=== PATIENT | male | born 1950 | race Caucasian/White ===

== ENCOUNTER → 2024-05-25 13:59 | Outpatient (REF) | payer OTHER, SELFPAY | LOC: PAVMRI 13:59 | PROVIDERS: ATTENDING PHYSICIAN Physician Assistant; FAMILY PHYSICIAN Family Medicine | DX: H90.42 Sensorineural hearing loss, unilateral, left ear, with unrestricted hearing on the contralateral side (principal) | CPT/HCPCS: 70553; A9575 ==

== ENCOUNTER → 2024-08-03 08:15 | Outpatient (REF) | payer OTHER, SELFPAY | LOC: HWRCS 08:15 | PROVIDERS: ATTENDING PHYSICIAN Internal Medicine Cardiovascular Disease; FAMILY PHYSICIAN Family Medicine | DX: I35.0 Nonrheumatic aortic (valve) stenosis (principal) | CPT/HCPCS: 93306 ==

== ENCOUNTER 2024-12-09 10:24 | Emergency (ER) | payer OTHER, SELFPAY ==
[2024-12-09 10:25] VITALS: BP 152/72
--- NOTE | 2024-12-09 12:09 | ED.GENMED ---
History of Present Illness
General
Chief Complaint: Skin Surface Trauma
Source: patient
Exam Limitations: none
Time Seen by Provider: 12/09/24 11:36
Nursing documentation reviewed up to this point in time: agreed with
History of Present Illness
History of Present Illness:
Patient is a 74-year-old male who presents to the emergency department for evaluation of laceration to his left fourth finger. Patient was using a hedgetrimmer when he accidentally cut his finger just prior to evaluation. He denies any other
injuries. No numbness/tingling in affected finger.
He is unsure when he received his last tetanus booster shot. No blood thinners.
Review of Systems
Review of Systems
Allergies reviewed?: Yes
All Other Systems: ROS reviewed and negative except as documented in HPI and ROS
Phy Exam
Physical Exam
Physical Exam:
Vitals: Hypertensive, otherwise vitals stable. Afebrile
General: Patient is well appearing, no acute distress
Skin: Approximately 2 cm vertical/curved laceration of palmar aspect of distal left fourth finger extending from tuft to medial aspect of nail. No involvement of nailbed
Head: Normocephalic, atraumatic
Throat: Protecting airway
Neck: Normal ROM, no cervical spine tenderness
Cardiac: Regular rate
Pulm: No apparent respiratory distress
Abdomen: Nondistended
Extremities: Laceration to left 4th finger as described above. Full ability to flex/extend at DIP, PIP, and MCP joints against resistance. Sensation intact. Capillary refill wnl.
Neuro: Grossly intact
Psychiatric: Normal affect.
Course
Orders/Labs/Results
Orders:
Orders
12/09/24 12:06
Tetanus/Diphth/Acelpertussis [Adacel] 0.5 ml IM .ONCE ONE
Vital Signs
Initial and Last Documented VS:
Initial Vital Signs
Temp Pulse Resp BP Pulse Ox
98 F 80 16 152/72 95
12/09/24 10:25 12/09/24 10:25 12/09/24 10:25 12/09/24 10:25 12/09/24 10:25
Last Documented Vital Signs
Temp Pulse Resp BP Pulse Ox
98 F 80 16 152/72 95
12/09/24 10:25 12/09/24 10:25 12/09/24 10:25 12/09/24 10:25 12/09/24 10:25
Procedures
Laceration Closure
Left Fourth Finger:
Status of Wound: clean
Size of Wound in cm: 2.0
Description of Wound Edges: sharp
Preparation: cleaned with saline and cleaned with Betadine
Anesthesia: 1% Lidocaine and Digital-Regional
Revision/Debridement: routine- no revision
Wound exploration: explored to base- no FB
Type of Closure: single layer closure
Skin Closure Material: 5-0 nylon (6)
Number of sutures: 6
MDM/Problems Addressed
Differential Diagnosis Includes:
Not limited to: finger laceration, tendon injury, etc
MDM/Problems Addressed:
The patient presented to the Emergency Department with a laceration to the left fourth finger sustained while using a golf ball trimmer this morning at home. On physical examination, there was a clean laceration approximately 2.0cm on the palmar aspect
of the left distal fourth finger extending to the medial aspect of nail, however no involvement of nailbed. No tendon, nerve, or vascular injury was identified. Capillary refill was intact, and the patient retained full range of motion and normal
sensation distal to the injury. Verbal consent obtained by patient for primary closure of wound in ED.
The wound was irrigated thoroughly with normal saline, and a digital block was performed using 1% lidocaine without epinephrine. The laceration was repaired with 6 simple interrupted sutures using 5-0 nylon. Hemostasis was achieved, and a sterile
dressing was applied. Patient tolerated procedure well. Patient received a tetanus booster in the ED. Stable for d/c home with wound care instructions, PCP f/u for suture removal in 10-14 days. He will monitor closely for signs of infection.
Chronic conditions affecting care:
N/A
Acute Exacerbation and/or Progression of Chronic Illness:
N/A
*Pulse Oximetry
Patient hypoxic: no (95% on RA)
*EKG
Interpreted by ED Provider?: NA
*Metaphysics Teacher Interpretation
Rate: Metaphysics Teacher- N/A
*Critical Care Note
Total Time (30-74mins, 75-104mins- exclusive of procedures): Not Applicable
ED Attending Note
-
Portions of this chart may have been created with voice recognition software.� Occasional wrong word or��sound alike� substitutions may have occurred due to the inherent limitations of voice recognition software.
Discharge Plan
Departure
Patient Disposition: Home (Routine Discharge)
Date of Disposition: 12/09/24
Time of Disposition: 13:12
Patient with high blood pressure during this ER visit?: Yes
Condition: Good
Covid-19: Not Applicable
Discharge Problem:
Laceration of finger
Instructions: Wound Care (DC), Laceration Repair With Stitches (DC), BLOOD PRESSURE
Prescriptions:
No Action
atorvastatin 10 MG tablet
10 mg PO .@1000
tamsulosin 0.4 MG capsule
0.4 mg PO .@1800
hydrochlorothiazide 25 MG tablet
25 mg PO .@1000
finasteride 5 MG tablet
5 mg PO .@1800
fenofibrate nanocrystallized 145 MG tablet
145 mg PO .@1000
Saw [place]
1 tab PO .@1000
sennosides [senna] 1 TABLET tablet
2 tab PO BID 0RF
acetaminophen 325 MG tablet
650 mg PO QID 0RF
magnesium hydroxide 30 ML suspension
30 ml PO DAILYPRN PRN (Reason: constipation) 0RF
aspirin 325 MG tablet,delayed release (DR/EC)
325 mg PO DAILY 0RF
docusate sodium 100 MG capsule
100 mg PO BID 0RF
mupirocin 1 APPLIC ointment
1 applic intranasal BID 0RF
famotidine 20 MG tablet
20 mg PO HS Qty: 1 0RF
meloxicam 15 MG tablet
15 mg PO .@1000 Qty: 1 0RF
Rx Instructions:
take with food
do not take within 2h of ASA
amlodipine 5 MG tablet
5 mg PO .@1000 Qty: 0 0RF
Rx Instructions:
hold sbp <135
lisinopril 40 MG tablet
40 mg PO DAILY Qty: 1 0RF
Rx Instructions:
hold systolic blood pressure <135
hydromorphone 2 MG tablet
2 mg PO Q4HPRN PRN (Reason: MODERATE-SEVERE PAIN) Qty: 60 0RF
Rx Instructions:
1 TAB MODERATE PAIN OR 2 IF PAIN SEVERE
DX TKA
ONGOING
prednisone 10 MG tablet
40 mg PO DAILY Qty: 16 0RF
Rx Instructions:
4 TABS 07/05
3 TABS 07/06 AND 07/07
2 TABS 07/08 AND 07/09
1 TAB 07/10 AND 07/11
Referrals:
Henok Magaña MD [Family Provider, Family Practice] - Follow up in 10 days
Activity Restrictions/Additional Instructions:
RETURN TO THE EMERGENCY DEPARTMENT WITH ANY BLEEDING FROM THE LACERATION THAT WILL NOT STOP AT HOME, NUMBNESS/TINGLING OF AFFECTED FINGER OR ANY SIGNS OF INFECTION INCLUDING FEVER, SIGNIFICANT REDNESS/SWELLING OF AFFECTED FINGER, PURULENT DRAINAGE
FROM WOUND, OR ANY OTHER CONCERNS
- As discussed�your laceration was closed with 6 stitches in the emergency department. These will need to be removed in 10 to 14 days. This can be done at primary care, urgent care, or emergency department.
- Keep wound clean and dry. Wash gently with soap and water daily. Keep wound covered with bandage until sutures are removed.
- Follow-up with primary care for further evaluation/management for suture removal
Monitor your symptoms closely and return to the emergency department with any acute worsening/new symptoms or any other concerns
Interventions
Interventions:
*Risk Screen - Suicide Last Done: 12/09/24 10:26
*Neglect/Abuse Screening Last Done: 12/09/24 10:26
*Nursing Disposition Last Done: 12/09/24 13:45
ED-Skin Assessment Last Done: 12/09/24 11:15
Discharge Date and Time
Discharge Date/Time: 12/09/24 13:47
Print Language: FAROESE
[2024-12-09] MEDS: ADACEL 0.5 ML IM (12:18)
== END 2024-12-09 13:47 | disposition home or self-care (01) ==
LOC: EMR 10:24
PROVIDERS: EMERGENCY PHYSICIAN Emergency Medicine; FAMILY PHYSICIAN Family Medicine
DX: S61.215A Laceration without foreign body of left ring finger without damage to nail, initial encounter (principal); W27.1XXA Contact with garden tool, initial encounter; Z23 Encounter for immunization
CPT/HCPCS: 99282; 12001; 90471; 90715

== ENCOUNTER 2025-03-17 06:03 | Day surgery (SDC) | payer OTHER, SELFPAY ==
--- NOTE | 2025-03-14 11:05 | VNURNOTE ---
Patient is scheduled for an elective L TKA on 03/17 - he is a same day patient with Dr Ross. Spoke with patient prior to surgery. Introduced role of [facility] Liaison. Patient reports that he lives with his .
He has a cane and rolling walker.
He had VN services after his prior THR but was not same day surgery.
Discussed [facility] joint protocol and post surgical plans.
Reviewed that he will have VN services initially and will then start outpatient PT.
Patient selects [facility] for his home care needs and [facility]. Scheduled for 03/21 .
Patient is in agreement with plan and states that his will be home with him. Advised to bring RW with him day of surgery. Referral placed in [facility]. [facility] contact number provided.
Plan: [facility] per [facility] joint protocol 03/17 then outpt PT on 03/21
--- NOTE | 2025-03-14 11:11 | CM ---
CM reviewed medical records. Plan for [facility] with same day VN.
[2025-03-17] VITALS (15 sets, daily range): BP systolic 117–161; BP diastolic 59–81; PULSE 96; O2SAT 98; BMI 31.2
[2025-03-17] MEDS: TYLENOL 650 MG PO (07:16)
[2025-03-17] MEDS: CELEBREX 200 MG PO (07:16)
[2025-03-17] MEDS: DILAUDID 0.25 MG IV ×3 (09:25→09:55)
[2025-03-17] MEDS: ROXICODONE 5 MG PO (11:09)
[2025-03-17] MEDS: FLOMAX 0.4 MG PO (12:51)
[2025-03-17 13:29] LABS: Glycohemoglobin (HgbA1c) 5.6 % (4.0-5.6)
--- NOTE | 2025-03-17 15:39 | W.PN.UPDATE ---
Update Note
Progress Note Update
L knee OA s/p L TKA w/ Dr Ross 03/17/25
DVT prophylaxis - ASA, bl venous foot pumps
Post-surgical urinary retention 2* underlying BPH - monitor voiding
- Bladder scan/straight cath prn
- Add daily Flomax
- Continue Finasteride
- Consider Bowen should retention continue
HTN - + parameters - monitor BP
Moderate , asymptomatic - decrease hourly IVF rate to prevent fluid overload
HLD
RBBB
Sinus bradycardia, asymptomatic
Colon polyps
Diverticulosis
--- NOTE | 2025-03-17 15:54 | W.PN.UPDATE ---
Update Note
Progress Note Update
Pt unfortunately not voiding post-procedure.
Voiding difficulties secondary to BPH for which he takes Finasteride. Has been compliant w/ med.
He was given a dose of Flomax this morning.
Otherwise is doing well. Passed w/ PT.
Talked w/ Dr Ross. Will give a dose of Lasix now and give the patient further time to urinate.
Should he still not be able to urinate, will d/c w/ Logan. Voiding trial can be done outpatient.
He will be d/c initially w/ VN services for further logan care if needed.
--- NOTE | 2025-03-17 16:02 | PTCARENOTE ---
Dr. Ross at [facility]. Plan is for patient to receive a dose of lasix. If in 30 minutes still no void, another dose of lasix. If no void after second dose of lasix a logan will be placed and patient will be discharged home.
[2025-03-17] MEDS: LASIX 10 MG IV (16:13)
== END 2025-03-17 17:07 | disposition home health service (06) ==
LOC: SDS 06:03
PROVIDERS: ATTENDING PHYSICIAN Orthopaedic Surgery
DX: M17.12 Unilateral primary osteoarthritis, left knee (principal)
CPT/HCPCS: 27447; 73560; 83036; 87070; 97162; C1713; C1776

== ENCOUNTER 2025-03-28 08:52 | Outpatient (RCR) | payer OTHER, SELFPAY | END 2025-03-28 23:59 | disposition home or self-care (01) | LOC: RPT 08:52 | PROVIDERS: ATTENDING PHYSICIAN Orthopaedic Surgery; FAMILY PHYSICIAN Family Medicine | DX: Z47.1 Aftercare following joint replacement surgery (principal); Z73.6 Limitation of activities due to disability; M25.562 Pain in left knee; R26.89 Other abnormalities of gait and mobility; M62.81 Muscle weakness (generalized); Z96.652 Presence of left artificial knee joint | CPT/HCPCS: 97010; 97110; 97116; 97162; 97530 ==

== ENCOUNTER 2025-04-29 08:06 | Outpatient (RCR) | payer OTHER, SELFPAY | END 2025-04-29 23:59 | disposition home or self-care (01) | LOC: RPT 08:06 | PROVIDERS: ATTENDING PHYSICIAN Orthopaedic Surgery; FAMILY PHYSICIAN Family Medicine | DX: Z47.1 Aftercare following joint replacement surgery (principal); Z73.6 Limitation of activities due to disability; M25.562 Pain in left knee; R26.89 Other abnormalities of gait and mobility; M62.81 Muscle weakness (generalized); Z96.652 Presence of left artificial knee joint | CPT/HCPCS: 97010; 97110; 97112; 97530 ==

== ENCOUNTER 2025-05-02 08:10 | Outpatient (RCR) | payer OTHER, SELFPAY | END 2025-05-25 08:53 | disposition home or self-care (01) | LOC: RPT 08:10 | PROVIDERS: ATTENDING PHYSICIAN Orthopaedic Surgery; FAMILY PHYSICIAN Family Medicine | DX: Z47.1 Aftercare following joint replacement surgery (principal); Z73.6 Limitation of activities due to disability; M25.562 Pain in left knee; R26.89 Other abnormalities of gait and mobility; M62.81 Muscle weakness (generalized); Z96.652 Presence of left artificial knee joint | CPT/HCPCS: 97110; 97112 ==